=== PATIENT | male | born 1950 | race Caucasian/White ===

== ENCOUNTER → 2021-06-29 10:30 | Outpatient (CLI) | payer MEDICARE, SELFPAY ==
[2021-06-29 20:17] LABS: COVID19 - ORCAS (NP or Nasal) Negative (Negative)
== END ==
PROVIDERS: Visit Provider Family Medicine
DX: Z20.822 Contact with and (suspected) exposure to COVID-19 (principal)
CPT/HCPCS: C9803; U0003

== ENCOUNTER → 2021-12-07 12:20 | Outpatient (CLI) | payer MEDICARE, OTHER, SELFPAY ==
[2021-12-07 19:43] LABS: Alanine Aminotransferase 26 IU/L (<50); Albumin 4.6 g/dL (3.5-5.0); Albumin Globulin Ratio 1.9 (1.0-2.8); Alkaline Phosphatase 54 U/L (38-126); Aspartate Aminotransferase 24 IU/L (17-59); BUN Creatinine Ratio 14.2 (6-22); Bilirubin Total 0.8 mg/dL (0.2-1.3); Blood Urea Nitrogen 15 mg/dL (9-20); Calcium 9.4 mg/dL (8.4-10.2); Carbon Dioxide 26 mmol/L (22-32); Chloride 106 mmol/L (98-107); Cholesterol 166 mg/dL (140-199); Estimated Glomerular Filt Rate > 60.0 mL/min (>60); Globulin 2.4 g/dL (1.7-4.1); Glucose 95 mg/dL (80-110); HDL Cholesterol 47 mg/dL (40-60); HEMOLYSIS < 15 (0-50); LDL Cholesterol Calculated 87 mg/dL (<100); Potassium 4.1 mmol/L (3.4-5.1); Sodium 140 mmol/L (137-145); Triglycerides 160 mg/dL (35-150)
[2021-12-07 19:59] LABS: Add Manual Diff / Slide Review NO; Basophils Absolute Auto 0 /uL (0-100); Basophils Percent Auto 0.9 % (0-2); Eosinophils Absolute Auto 100 /uL (0-450); Eosinophils Percent Auto 3.2 % (2-4); Hematocrit 48.2 % (41-53); Hemoglobin 16.9 g/dL (13.5-17.5); Lymphocytes Absolute Auto 1300 /uL (1100-4500); Lymphocytes Percent Auto 30.6 % (25-40); Mean Corpuscular HGB Conc 35.1 % (30-36); Mean Corpuscular Hemoglobin 30.8 PG (26-34); Mean Corpuscular Volume 87.5 fL (80-100); Monocytes Absolute Auto 400 /uL (0-900); Monocytes Percent Auto 9.3 % (3-14); Neutrophils Absolute Auto 2300 /uL (1500-7000); Platelet Count 130 X10^3/uL (150-400); Red Blood Cell Count 5.51 X10^6/uL (4.5-5.9); Red Cell Distribution Width 13.8 % (11.6-14.8); White Blood Cell Count 4.1 X10^3/uL (4.5-11.0)
[2021-12-07 20:39] LABS: Prostate Specific Antigen 99.3 ng/mL (0.10-4.00)
== END ==
PROVIDERS: Referring Provider Physician Assistant; Visit Provider Physician Assistant
DX: Z13.1 Encounter for screening for diabetes mellitus (principal); I10 Essential (primary) hypertension; Z00.00 Encounter for general adult medical examination without abnormal findings; Z13.220 Encounter for screening for lipoid disorders; Z12.5 Encounter for screening for malignant neoplasm of prostate; M10.9 Gout, unspecified
CPT/HCPCS: 80053; 80061; 83036; 84153; 84550; 85025; G0103

== ENCOUNTER → 2022-01-09 11:30 | Outpatient (CLI) | payer MEDICARE, OTHER, SELFPAY ==
[2022-01-09 23:32] LABS: Prostate Specific Antigen Scrn 92.7 ng/mL (0.1-4.0)
== END ==
PROVIDERS: PCP Physician Assistant; Visit Provider Urology
DX: R97.20 Elevated prostate specific antigen [PSA] (principal); Z12.5 Encounter for screening for malignant neoplasm of prostate
CPT/HCPCS: G0103

== ENCOUNTER → 2022-01-12 15:24 | Outpatient (CLI) | payer MEDICARE, OTHER, SELFPAY ==
--- NOTE | 2022-01-12 15:26 | DI.MRI.S_ITS ---
PROCEDURE: MR PELIS WO/W CON INDICATIONS: PSA of 99 TECHNIQUE: Coronal HASTE, axial T1 FSE with fat saturation, 3-plane nonbreath-hold T2 FSE. After the administration of contrast, dynamic axial, delayed axial and coronal VIBE or 2-D FLASH with fat saturation through the pelvis. Optional diffusion weighted imaging and ADC may be performed. COMPARISON: None. FINDINGS: Image quality: Diffusion weighted and dynamic contrast enhanced images are diagnostic. Prostate: Gland size is roughly 7.2 by 6.3 x 7.4 cm; ellipsoid gland volume is approximately 175 mL. Lesion size(s): Lesion 1: 5.4 cm Lesion 2: 1.2 cm Lesion 3: 2.2 cm. Lesion location(s) (sector): Lesion 1: Much of the entire right enlarged peripheral zone from the base to apex. Lesion 2: Right posterolateral peripheral zone mid gland apex. Lesion 3.: Periurethral transition zone at the apex Lesion description: Lesion 1: Curvilinear expansile region with indistinct T2 hypointensity suggesting erased charcoal appears to respect capsular boundary, but is immediately adjacent to the neurovascular bundle where infiltrative tissue is seen. Caudally, there is periurethral abnormal signal and enhancement Lesion 2: Oval area of mild decreased T2 signal within the artery abnormal peripheral zone is indistinguishable on T2 imaging Lesion 3.: Linear area with indistinct margins in the right periurethral region with mildly decreased T2 signal, possibly confluent with the larger more cranial region. T2 weighted imaging (T2WI) morphology score: Lesion 1: Five Lesion 2: Four Lesion 3: Three Diffusion weighted imaging (DWI) morphology score: Lesion 1: Five Lesion 2: Five Lesion 3.: Five Dynamic contrast enhancement (DCE): Lesion 1: Present Lesion 2: Absent Lesion 3.: Present Lesion PI-RADS score: Lesion 1: PI-RADS five Lesion 2: PI-RADS five Lesion 3.: PI-RADS four Genitourinary system: Urinary bladder wall is mildly diffusely thickened. There is a tiny right lateral bladder diverticulum.. Distal ureters are non distended. Bowel and peritoneum: No pathologic free pelvic fluid. Inferior colon and small bowel loops are normal in caliber. Nodes and vessels: Left anterior pelvic node measures 6 mm in short axis. Several nonenlarged external iliac chain nodes are present. Proximal left external iliac chain lymph node is enlarged. Soft tissues: No inguinal hernias. Bones: Marrow demonstrates normal overall signal, without lesions to suggest metastases. IMPRESSION: 1. There is a large area of suspicious signal involving the right peripheral zone with probable extracapsular extension towards the neurovascular bundle. 2. There is a more focal area within this abnormal area of even more increased restricted diffusion. 3. There is abnormal periurethral signal in the right transition zone at the apex. 4. While these areas are PI-RADS five and four respectively, moderate and highly suspicious for neoplasm, differential diagnosis includes, but less likely, prostatitis and periurethral fibrosis. Targeted biopsy is suggested if not previously performed. 5. Left anterior pelvic and proximal external iliac chain lymph nodes are mildly suspicious. Dictated by: Yaneth Patton M.D. on 01/12/2022 at 17:30 Approved by: Yaneth Patton M.D. on 01/12/2022 at 17:54
== END ==
PROVIDERS: PCP Physician Assistant; Referring Provider Urology; Visit Provider Urology
DX: N42.9 Disorder of prostate, unspecified (principal); R97.20 Elevated prostate specific antigen [PSA]; R59.0 Localized enlarged lymph nodes
CPT/HCPCS: 72197

== ENCOUNTER → 2022-02-27 14:47 | Outpatient (CLI) | payer MEDICARE, OTHER, SELFPAY ==
[2022-02-27 16:13] LABS: BUN Creatinine Ratio 18.2 (6-22); Blood Urea Nitrogen 20 mg/dL (9-20); Calcium 8.7 mg/dL (8.4-10.2); Carbon Dioxide 24 mmol/L (22-32); Chloride 108 mmol/L (98-107); Estimated Glomerular Filt Rate > 60 mL/min (>60); Glucose 92 mg/dL (80-110); HEMOLYSIS 28 (0-50); Potassium 3.9 mmol/L (3.4-5.1); Sodium 142 mmol/L (137-145)
== END ==
PROVIDERS: PCP Physician Assistant; Referring Provider Urology; Visit Provider Urology
DX: C61 Malignant neoplasm of prostate (principal); R97.20 Elevated prostate specific antigen [PSA]; N42.9 Disorder of prostate, unspecified
CPT/HCPCS: 36415; 80048; 99215

== ENCOUNTER → 2022-03-14 10:36 | Outpatient (CLI) | payer MEDICARE, OTHER, SELFPAY ==
--- NOTE | 2022-03-14 10:37 | DI.NM.S_ITS ---
PROCEDURE: NM BONE SCAN WHOLE BODY RADIOPHARMACEUTICAL: 20 mCi Tc-99m MDP IV. INDICATIONS: New diagnosis prostate cancer rule out mets TECHNIQUE: Delayed whole-body scintigrams were obtained approximately 3-4 hours after intravenous injection of radiotracer. Anterior and posterior views were acquired from vertex to feet. Additional left and right oblique views of the pelvis were obtained. COMPARISON: [facility], CT, CT ABDOMEN PELVIS W CON, 03/14/2022, 11:35. [facility], MR, MR PELVIS WO/W CON, 01/12/2022, 15:39. FINDINGS: No lesions are identified in skull, sternum, clavicles, scapulae, ribs, bony pelvis, and visualized shafts of the long bones. There is low level increased uptake in cervical, thoracic and lumbar spine with distribution indistinguishable from degenerative disc and facet disease; early metastasis to spine could be obscured by degenerative changes. There are foci of increased periarticular activity compatible with degenerative/arthritic changes. IMPRESSION: No definitive scintigraphic findings to suggest osseous metastasis. Dictated by: Rishabh Iglesias M.D. on 03/14/2022 at 16:22 Approved by: Rishabh Iglesias M.D. on 03/14/2022 at 16:39
--- NOTE | 2022-03-14 11:31 | DI.CT.S_ITS ---
PROCEDURE: CT ABDOMEN PELVIS W CON INDICATIONS: Mets/ Staging New CA dx TECHNIQUE: After the administration of oral and intravenous contrast, axial sections were acquired from the lung bases to the pubic symphysis. Coronal and sagittal reformats were performed. For radiation dose reduction, the following was used: automated exposure control, adjustment of mA and/or kV according to patient size. COMPARISON:[facility], MR, MR PELVIS WO/W CON, 01/12/2022, 15:39. FINDINGS: Image quality: Excellent. Lung bases: Unremarkable. Heart: No significant findings. ABDOMEN: Liver: Unremarkable. Gallbladder: Unremarkable. Biliary ducts: Unremarkable. Pancreas: Unremarkable. Spleen: Unremarkable. Adrenal Glands: Unremarkable. Kidneys and Ureters: Unremarkable. Stomach and Bowel: Small hiatal hernia. Distal esophageal wall thickening, mild, may potentially represent reflux esophagitis. Peritoneum: No abnormal intraperitoneal fluid. No free air. Ventral Wall: No hernia. Abdominal Nodes: No retroperitoneal or mesenteric adenopathy by size criteria. A left iliac lymph node on image 70/2 measures 1.8 x 1.0 cm. A left common iliac lymph node near the bifurcation of the aorta measures 1.2 x 1.1 cm. Vessels: Aorta and inferior vena cava are normal in size. PELVIS: Pelvic Organs: Prostate is quite enlarged Bladder: Mild diffuse bladder wall thickening. Pelvic Nodes: A left iliac lymph node measures 1.8 x 1.0 cm. There is a enhancing lymph node in the lower perivesicular fat behind the left rectus muscle measuring 1.2 x 0.9 cm. Miscellaneous: No inguinal hernias are seen. Bones: No lytic or blastic bony lesions. IMPRESSION: 1. Marked enlargement of the prostate. 2. Somewhat prominent left iliac lymph nodes, as well as a lymph node near the bladder the on the left rectus muscle. 3. No other findings suspicious for metastatic disease. Dictated by: Flaco Rodney M.D. on 03/14/2022 at 12:53 Approved by: Flaco Rodney M.D. on 03/14/2022 at 13:07
== END ==
PROVIDERS: PCP Physician Assistant; Referring Provider Urology; Visit Provider Urology
DX: C61 Malignant neoplasm of prostate (principal); R97.20 Elevated prostate specific antigen [PSA]; N42.9 Disorder of prostate, unspecified; K44.9 Diaphragmatic hernia without obstruction or gangrene; R59.0 Localized enlarged lymph nodes
CPT/HCPCS: 74177; 78306; A9503

== ENCOUNTER → 2022-12-05 12:49 | Outpatient (CLI) | payer MEDICARE, OTHER, SELFPAY ==
--- NOTE | 2022-12-05 12:50 | DI.MRI.S_ITS ---
PROCEDURE: MR KNEE LT WO CON INDICATIONS: left knee injury,instability,pain x 4 mos TECHNIQUE: Noncontrast sagittal PD fast spin echo and T2 fast spin echo with fat saturation, sagittal 3-D FLASH with fat saturation; coronal T1 spin echo and PD fast spin echo with fat saturation, and axial PD fast spin echo with fat saturation through the knee. COMPARISON: [facility] ([facility]), CR, XR KNEE LT 3V, 11/28/2022, 12:00. FINDINGS: Image quality: Excellent. Anterior Cruciate Ligament: Intact. Posterior Cruciate Ligament: Intact. Medial Collateral Ligament: Mild thickening of the proximal medial collateral ligament is most likely secondary to a remote prior low-grade sprain. Lateral Collateral Ligament: Intact. Medial Meniscus: Intact. Lateral Meniscus: Intact. Medial and Lateral Tendons: The semimembranosus tendon insertions and meniscocapsular junction appear intact. Visualized portions of the pes anserinus tendons appear normal. No abnormal bursal fluid. The long and short heads of the biceps femoris tendon appear intact. The popliteus tendon appears intact. No signs of posterolateral corner injury. Iliotibial band appears normal. Anterior Structures: Mild patellar tendinosis. The distal quadriceps tendon is intact. No patellar subluxation. No femoral trochlear dysplasia or ventral trochlear prominence. No edema in the infrapatellar fat pad. Bones: No acute trabecular bone injury or fracture. Medial Femorotibial Cartilage: Intact. Lateral Femorotibial Cartilage: Intact. Patellofemoral Cartilage: Intact. Soft Tissues: A small joint effusion is present. Trace medial popliteal cyst. Mild [id number] signal is seen in the distal portion of the semimembranosus muscle that is suspicious for a low-grade muscle strain. There is also subtle intramuscular edema within the calf musculature that may also indicate a low-grade strain. IMPRESSION: 1. Mild edema within the musculature surrounding, most prominent in the semimembranosus muscle, is nonspecific but may be secondary to low-grade muscle strains. 2. Chronic low-grade sprain of the proximal medial collateral ligament. 3. Cruciate ligaments are intact. No meniscal tear. There is no acute trabecular bone injury. 4. Small joint effusion. Approved by: Sotero Leal M.D. on 12/05/2022 at 16:21
== END ==
PROVIDERS: Family Provider Physician Assistant; PCP Physician Assistant; Referring Provider Physician Assistant; Visit Provider Physician Assistant
DX: M25.562 Pain in left knee (principal); M25.462 Effusion, left knee; G89.29 Other chronic pain; S83.412A Sprain of medial collateral ligament of left knee, initial encounter; M21.372 Foot drop, left foot
CPT/HCPCS: 73721

== ENCOUNTER → 2022-12-20 10:41 | Outpatient (CLI) | payer MEDICARE, OTHER, SELFPAY ==
[2022-12-20 19:22] LABS: Hemoglobin A1C% w Est Avg Glu 4.4 % (4.0-6.0)
[2022-12-20 19:27] LABS: Add Manual Diff / Slide Review NO; Basophils Absolute Auto 0 /uL (0-100); Basophils Percent Auto 1.1 % (0-2); Eosinophils Absolute Auto 200 /uL (0-450); Eosinophils Percent Auto 6.1 % (2-4); Hematocrit 42.4 % (41-53); Lymphocytes Absolute Auto 500 /uL (1100-4500); Lymphocytes Percent Auto 17.2 % (25-40); Mean Corpuscular HGB Conc 35.3 % (30-36); Mean Corpuscular Hemoglobin 31.7 PG (26-34); Mean Corpuscular Volume 89.8 fL (80-100); Monocytes Absolute Auto 200 /uL (0-900); Neutrophils Absolute Auto 2000 /uL (1500-7000); Neutrophils Percent Auto 67.6 % (50-75); Platelet Count 125 X10^3/uL (150-400); Red Blood Cell Count 4.72 X10^6/uL (4.5-5.9); Red Cell Distribution Width 13.7 % (11.6-14.8); White Blood Cell Count 2.9 X10^3/uL (4.5-11.0)
[2022-12-20 19:43] LABS: Alanine Aminotransferase 20 IU/L (<50); Albumin Globulin Ratio 1.8 (1.0-2.8); Alkaline Phosphatase 64 U/L (38-126); Aspartate Aminotransferase 21 IU/L (17-59); BUN Creatinine Ratio 12.9 (6-22); Blood Urea Nitrogen 12 mg/dL (9-20); Calcium 9.1 mg/dL (8.4-10.2); Carbon Dioxide 23 mmol/L (22-32); Chloride 103 mmol/L (98-107); Estimated Glomerular Filt Rate > 60 mL/min (>60); Globulin 2.2 g/dL (1.7-4.1); Glucose 130 mg/dL (80-110); HEMOLYSIS < 15 (0-50); Potassium 3.1 mmol/L (3.4-5.1); Sodium 139 mmol/L (137-145); Total Protein 6.2 g/dL (6.3-8.2)
[2022-12-20 19:56] LABS: Prostate Specific Antigen < 0.064 ng/mL (0.10-4.00)
== END ==
PROVIDERS: Family Provider Physician Assistant; PCP Physician Assistant; Visit Provider Urology
DX: M25.562 Pain in left knee (principal); Z13.1 Encounter for screening for diabetes mellitus; C61 Malignant neoplasm of prostate; I10 Essential (primary) hypertension; R21 Rash and other nonspecific skin eruption; G89.29 Other chronic pain
CPT/HCPCS: 80053; 83036; 84153; 85025

== ENCOUNTER 2023-01-03 11:15 | Outpatient (CLI) | payer MEDICARE, OTHER, SELFPAY | END 2023-01-11 14:34 | disposition home or self-care (01) | PROVIDERS: Family Provider Physician Assistant; PCP Physician Assistant; Referring Provider Physician Assistant; Visit Provider Physician Assistant | DX: C61 Malignant neoplasm of prostate (principal); M21.372 Foot drop, left foot; R20.2 Paresthesia of skin; R97.20 Elevated prostate specific antigen [PSA]; R39.9 Unspecified symptoms and signs involving the genitourinary system; Z92.3 Personal history of irradiation; Z79.818 Long term (current) use of other agents affecting estrogen receptors and estrogen levels | CPT/HCPCS: 95886; 95910; 96402; 99213; J9217 ==

== ENCOUNTER → 2023-01-15 11:36 | Outpatient (CLI) | payer MEDICARE, OTHER, SELFPAY ==
[2023-01-15 19:07] LABS: Add Manual Diff / Slide Review NO; Basophils Absolute Auto 0 /uL (0-100); Basophils Percent Auto 0.4 % (0-2); Eosinophils Absolute Auto 300 /uL (0-450); Eosinophils Percent Auto 10.4 % (2-4); Hematocrit 40.6 % (41-53); Hemoglobin 14.3 g/dL (13.5-17.5); Lymphocytes Absolute Auto 600 /uL (1100-4500); Lymphocytes Percent Auto 17.6 % (25-40); Mean Corpuscular HGB Conc 35.3 % (30-36); Mean Corpuscular Hemoglobin 31.4 PG (26-34); Mean Corpuscular Volume 88.9 fL (80-100); Monocytes Absolute Auto 300 /uL (0-900); Monocytes Percent Auto 8.2 % (3-14); Neutrophils Absolute Auto 2000 /uL (1500-7000); Neutrophils Percent Auto 63.4 % (50-75); Platelet Count 124 X10^3/uL (150-400); Red Blood Cell Count 4.56 X10^6/uL (4.5-5.9); Red Cell Distribution Width 13.3 % (11.6-14.8); White Blood Cell Count 3.1 X10^3/uL (4.5-11.0)
[2023-01-15 19:25] LABS: BUN Creatinine Ratio 15.9 (6-22); Blood Urea Nitrogen 14 mg/dL (9-20); Calcium 8.7 mg/dL (8.4-10.2); Carbon Dioxide 30 mmol/L (22-32); Chloride 104 mmol/L (98-107); Estimated Glomerular Filt Rate > 60 mL/min (>60); Glucose 130 mg/dL (80-110); HEMOLYSIS < 15 (0-50); Potassium 3.1 mmol/L (3.4-5.1); Sodium 142 mmol/L (137-145)
== END ==
PROVIDERS: Family Provider Physician Assistant; PCP Physician Assistant; Visit Provider Physician Assistant
DX: I10 Essential (primary) hypertension (principal); D72.810 Lymphocytopenia; E87.6 Hypokalemia
CPT/HCPCS: 80048; 85025

== ENCOUNTER → 2023-03-28 09:06 | Outpatient (CLI) | payer MEDICARE, OTHER, SELFPAY ==
[2023-03-28 19:56] LABS: Prostate Specific Antigen < 0.064 ng/mL (0.10-4.00)
== END ==
PROVIDERS: Family Provider Physician Assistant; PCP Physician Assistant; Visit Provider Urology
DX: R97.20 Elevated prostate specific antigen [PSA] (principal)
CPT/HCPCS: 84153

== ENCOUNTER → 2023-06-19 10:52 | Outpatient (CLI) | payer MEDICARE, OTHER, SELFPAY ==
[2023-06-19 20:29] LABS: Prostate Specific Antigen < 0.064 ng/mL (0.10-4.00)
== END ==
PROVIDERS: Family Provider Physician Assistant; PCP Physician Assistant; Visit Provider Urology
DX: R97.20 Elevated prostate specific antigen [PSA] (principal)
CPT/HCPCS: 84153

== ENCOUNTER → 2023-08-14 15:18 | Outpatient (CLI) | payer MEDICARE, OTHER, SELFPAY ==
--- NOTE | 2023-08-14 15:20 | DI.RAD.S_ITS ---
Bone Density Report Name: ANTHONY CRUZ Age: 73 Sex: Male Ethnicity: White Date of : 1950 Indication: screening for osteoporosis; Referring Provider: DOMENICO SIMMONS Study: Bone densitometry was performed. Exam Date: August 14, 2023 Accession number: [id number] Bone Density: Region BMD T-score Z-score Classification AP Spine(L1, L2, L3) 0.992 -0.2 0.2 Normal Femoral Neck (Left) 0.682 -1.5 -0.6 Osteopenia Total Hip (Left) 0.974 0.3 0.3 Normal Femoral Neck (Right) 0.720 -1.2 -0.3 Osteopenia Total Hip (Right) 0.979 0.3 0.3 Normal Total Hip Mean 0.977 0.3 0.3 Normal World Health Organization criteria for BMD impression classify patients as: Normal (T-score at or above -1.0), Osteopenia (T-score between -1.0 and -2.5), or Osteoporosis (T-score at or below -2.5). 10-year Fracture Risk(1): Major Osteoporotic Fracture 7.0% Hip Fracture 1.8% Reported Risk Factors: [place] (), Neck BMD=0.682, BMI=33.3 (1) FRAX(R) Version 3.08. Fracture probability calculated for an untreated patient. Fracture probability may be lower if the patient has received treatment. Impression: The patient has low bone mass, based on the Left Femoral Neck T-score. The patient has an estimated ten-year risk of hip fracture of 1.8% and an estimated ten-year risk of major fracture of 7%, based on the WHO FRAX algorithm. Discussion: BONE DENSITY IS LOW AT ONE OR MORE SKELETAL SITES. This patient's lowest T-score is low at one or more skeletal sites. It meets the World Health Organization's (WHO) criteria for low bone mass (T-score between -1.0 and -2.5). The patient's 10-year risk of fracture as calculated by FRAX is less than the threshold where pharmacological therapy is recommended by the National Osteoporosis Foundation (NOF). However, all treatment decisions require clinical judgment and consideration of individual patient factors, including patient preferences, comorbidities, previous drug use, risk factors not captured in the FRAX model (e.g., frailty, falls, vitamin D deficiency, increased bone turnover, interval significant decline in bone density) and possible under or overestimation of fracture risk by FRAX. The patient should follow a healthful lifestyle (good nutrition with adequate calcium and vitamin D, and appropriate weight-bearing exercise). Follow-Up: Consider repeating this study in 2 to 3 years to reassess this patient's status, or sooner if there is some new clinical indication. Reported by: ANITA WELDON M.D on 08/14/2023 3:53:00 PM.
== END ==
PROVIDERS: Family Provider Physician Assistant; PCP Physician Assistant; Referring Provider Urology; Visit Provider Urology
DX: C61 Malignant neoplasm of prostate (principal); M85.852 Other specified disorders of bone density and structure, left thigh; M85.851 Other specified disorders of bone density and structure, right thigh; Z79.818 Long term (current) use of other agents affecting estrogen receptors and estrogen levels
CPT/HCPCS: 77080

== ENCOUNTER → 2023-09-17 13:26 | Outpatient (CLI) | payer MEDICARE, OTHER, SELFPAY ==
[2023-09-17 21:02] LABS: Prostate Specific Antigen < 0.064 ng/mL (0.10-4.00)
== END ==
PROVIDERS: Family Provider Physician Assistant; PCP Physician Assistant; Visit Provider Urology
DX: C61 Malignant neoplasm of prostate (principal)
CPT/HCPCS: 84153

== ENCOUNTER → 2023-12-18 11:02 | Outpatient (CLI) | payer MEDICARE, OTHER, SELFPAY ==
[2023-12-18 19:33] LABS: Vitamin D 25 Hydroxy (D3) 42.2 ng/mL (30.0-100.0)
[2023-12-18 19:41] LABS: Prostate Specific Antigen < 0.064 ng/mL (0.10-4.00)
== END ==
PROVIDERS: Family Provider Physician Assistant; PCP Urology; Visit Provider Urology
DX: C61 Malignant neoplasm of prostate (principal); Z79.818 Long term (current) use of other agents affecting estrogen receptors and estrogen levels; M85.80 Other specified disorders of bone density and structure, unspecified site
CPT/HCPCS: 82306; 84153

== ENCOUNTER → 2024-03-18 13:05 | Outpatient (CLI) | payer MEDICARE, OTHER, SELFPAY ==
[2024-03-18 21:44] LABS: Prostate Specific Antigen < 0.064 ng/mL (0.10-4.00)
== END ==
PROVIDERS: Family Provider Physician Assistant; Visit Provider Urology
DX: C61 Malignant neoplasm of prostate (principal)
CPT/HCPCS: 84153

== ENCOUNTER → 2024-05-26 12:03 | Outpatient (CLI) | payer MEDICARE, OTHER, SELFPAY ==
[2024-05-26 21:15] LABS: Alanine Aminotransferase 18 IU/L (<50); Albumin 4.2 g/dL (3.5-5.0); Albumin Globulin Ratio 1.8 (1.0-2.8); Alkaline Phosphatase 66 U/L (38-126); Aspartate Aminotransferase 22 IU/L (17-59); BUN Creatinine Ratio 16.2 (6-22); Bilirubin Total 0.9 mg/dL (0.2-1.3); Blood Urea Nitrogen 16 mg/dL (9-20); Calcium 9.4 mg/dL (8.4-10.2); Carbon Dioxide 26 mmol/L (22-32); Chloride 107 mmol/L (98-107); Estimated Glomerular Filt Rate > 60 mL/min (>60); Globulin 2.4 g/dL (1.7-4.1); Glucose 101 mg/dL (80-110); HEMOLYSIS < 15 (0-50); Sodium 139 mmol/L (137-145); Total Protein 6.6 g/dL (6.3-8.2)
== END ==
PROVIDERS: Family Provider Physician Assistant; PCP Family Medicine; Referring Provider Urology; Visit Provider Urology
DX: C61 Malignant neoplasm of prostate (principal); Z79.818 Long term (current) use of other agents affecting estrogen receptors and estrogen levels
CPT/HCPCS: 80053

== ENCOUNTER → 2024-06-10 12:01 | Outpatient (CLI) | payer MEDICARE, OTHER, SELFPAY ==
[2024-06-10 22:37] LABS: BUN Creatinine Ratio 17.5 (6-22); Blood Urea Nitrogen 18 mg/dL (9-20); Calcium 9.2 mg/dL (8.4-10.2); Carbon Dioxide 28 mmol/L (22-32); Chloride 103 mmol/L (98-107); Estimated Glomerular Filt Rate > 60 mL/min (>60); Glucose 135 mg/dL (80-110); HEMOLYSIS < 15 (0-50); Potassium 3.9 mmol/L (3.4-5.1); Sodium 137 mmol/L (137-145)
== END ==
PROVIDERS: Family Provider Physician Assistant; PCP Family Medicine; Visit Provider Urology
DX: I10 Essential (primary) hypertension (principal)
CPT/HCPCS: 80048

== ENCOUNTER → 2024-06-24 11:56 | Outpatient (CLI) | payer MEDICARE, OTHER, SELFPAY ==
[2024-06-24 20:11] LABS: BUN Creatinine Ratio 23.7 (6-22); Blood Urea Nitrogen 22 mg/dL (9-20); Calcium 9.3 mg/dL (8.4-10.2); Carbon Dioxide 24 mmol/L (22-32); Chloride 104 mmol/L (98-107); Estimated Glomerular Filt Rate > 60 mL/min (>60); Glucose 111 mg/dL (80-110); HEMOLYSIS 44 (0-50); Potassium 4.1 mmol/L (3.4-5.1); Sodium 135 mmol/L (137-145)
== END ==
PROVIDERS: Family Provider Physician Assistant; PCP Family Medicine; Referring Provider Urology; Visit Provider Urology
DX: I10 Essential (primary) hypertension (principal)
CPT/HCPCS: 80048

== ENCOUNTER → 2024-06-30 09:13 | Outpatient (CLI) | payer MEDICARE, OTHER, SELFPAY ==
[2024-06-30 19:16] LABS: Blood Urea Nitrogen 27 mg/dL (9-20); Calcium 9.6 mg/dL (8.4-10.2); Carbon Dioxide 26 mmol/L (22-32); Chloride 98 mmol/L (98-107); Estimated Glomerular Filt Rate > 60 mL/min (>60); Glucose 89 mg/dL (80-110); HEMOLYSIS < 15 (0-50); Potassium 4.4 mmol/L (3.4-5.1); Sodium 133 mmol/L (137-145)
== END ==
PROVIDERS: Family Provider Physician Assistant; PCP Family Medicine; Referring Provider Urology; Visit Provider Urology
DX: I10 Essential (primary) hypertension (principal)
CPT/HCPCS: 80048

== ENCOUNTER → 2024-07-09 12:05 | Outpatient (CLI) | payer MEDICARE, OTHER, SELFPAY ==
[2024-07-09 20:01] LABS: Prostate Specific Antigen < 0.064 ng/mL (0.10-4.00)
== END ==
PROVIDERS: Family Provider Physician Assistant; PCP Family Medicine; Visit Provider Urology
DX: R97.20 Elevated prostate specific antigen [PSA] (principal)
CPT/HCPCS: 84153

== ENCOUNTER → 2024-08-21 10:25 | Outpatient (CLI) | payer MEDICARE, OTHER, SELFPAY ==
[2024-08-21 20:25] LABS: Add Manual Diff / Slide Review NO; Basophils Absolute Auto 0 /uL (0-100); Basophils Percent Auto 0.8 % (0-2); Eosinophils Absolute Auto 200 /uL (0-450); Eosinophils Percent Auto 4.5 % (2-4); Hematocrit 40.2 % (41-53); Lymphocytes Absolute Auto 700 /uL (1100-4500); Lymphocytes Percent Auto 21.2 % (25-40); Mean Corpuscular HGB Conc 34.9 % (30-36); Mean Corpuscular Hemoglobin 31.2 PG (26-34); Mean Corpuscular Volume 89.4 fL (80-100); Monocytes Absolute Auto 400 /uL (0-900); Monocytes Percent Auto 13.1 % (3-14); Neutrophils Absolute Auto 2000 /uL (1500-7000); Neutrophils Percent Auto 60.4 % (50-75); Platelet Count 147 X10^3/uL (150-400); Red Cell Distribution Width 14.4 % (11.6-14.8); White Blood Cell Count 3.4 X10^3/uL (4.5-11.0)
[2024-08-21 20:33] LABS: BUN Creatinine Ratio 21.1 (6-22); Blood Urea Nitrogen 19 mg/dL (9-20); Calcium 9.5 mg/dL (8.4-10.2); Carbon Dioxide 24 mmol/L (22-32); Chloride 103 mmol/L (98-107); Cholesterol 161 mg/dL (140-199); Estimated Glomerular Filt Rate > 60 mL/min (>60); Glucose 114 mg/dL (80-110); HDL Cholesterol 47 mg/dL (40-60); HEMOLYSIS 27 (0-50); LDL Cholesterol Calculated 71 mg/dL (<100); Potassium 4.2 mmol/L (3.4-5.1); Sodium 133 mmol/L (137-145); Triglycerides 216 mg/dL (35-150)
== END ==
PROVIDERS: Family Provider Physician Assistant; PCP Family Medicine; Visit Provider Family Medicine
DX: I10 Essential (primary) hypertension (principal); R53.83 Other fatigue; D61.818 Other pancytopenia; E87.1 Hypo-osmolality and hyponatremia; Z13.6 Encounter for screening for cardiovascular disorders
CPT/HCPCS: 80048; 80061; 85025

== ENCOUNTER → 2024-11-17 13:05 | Outpatient (CLI) | payer MEDICARE, OTHER, SELFPAY ==
[2024-11-17 20:16] LABS: BUN Creatinine Ratio 20.7 (6-22); Blood Urea Nitrogen 23 mg/dL (9-20); Calcium 9.4 mg/dL (8.4-10.2); Carbon Dioxide 22 mmol/L (22-32); Chloride 106 mmol/L (98-107); Estimated Glomerular Filt Rate > 60 mL/min (>60); Glucose 101 mg/dL (80-110); HEMOLYSIS 24 (0-50); Potassium 4.5 mmol/L (3.4-5.1); Sodium 133 mmol/L (137-145)
== END ==
PROVIDERS: Family Provider Physician Assistant; PCP Family Medicine; Visit Provider Family Medicine
DX: C61 Malignant neoplasm of prostate (principal); E87.1 Hypo-osmolality and hyponatremia; I10 Essential (primary) hypertension
CPT/HCPCS: 80048; 84153

== ENCOUNTER → 2025-03-16 09:56 | Outpatient (CLI) | payer MEDICARE, OTHER, SELFPAY ==
[2025-03-16 19:49] LABS: Add Manual Diff / Slide Review NO; Basophils Absolute Auto 0 /uL (0-100); Basophils Percent Auto 1.1 % (0-2); Eosinophils Absolute Auto 200 /uL (0-450); Eosinophils Percent Auto 4.6 % (2-4); Hematocrit 44.9 % (41-53); Hemoglobin 15.5 g/dL (13.5-17.5); Lymphocytes Absolute Auto 800 /uL (1100-4500); Lymphocytes Percent Auto 20.7 % (25-40); Mean Corpuscular HGB Conc 34.5 % (30-36); Monocytes Absolute Auto 400 /uL (0-900); Monocytes Percent Auto 9.9 % (3-14); Neutrophils Absolute Auto 2500 /uL (1500-7000); Neutrophils Percent Auto 63.7 % (50-75); Platelet Count 143 X10^3/uL (150-400); Red Blood Cell Count 4.83 X10^6/uL (4.5-5.9); Red Cell Distribution Width 14.1 % (11.6-14.8)
[2025-03-16 19:54] LABS: Alanine Aminotransferase 31 IU/L (<50); Albumin 4.4 g/dL (3.5-5.0); Alkaline Phosphatase 64 U/L (38-126); Aspartate Aminotransferase 29 IU/L (17-59); BUN Creatinine Ratio 14.3 (6-22); Bilirubin Total 0.5 mg/dL (0.2-1.3); Blood Urea Nitrogen 15 mg/dL (9-20); Calcium 9.3 mg/dL (8.4-10.2); Carbon Dioxide 25 mmol/L (22-32); Chloride 105 mmol/L (98-107); Cholesterol 173 mg/dL (140-199); Estimated Glomerular Filt Rate > 60 mL/min (>60); Globulin 2.2 g/dL (1.7-4.1); Glucose 105 mg/dL (70-99); HDL Cholesterol 43 mg/dL (40-60); HEMOLYSIS 17 (0-50); LDL Cholesterol Calculated 82 mg/dL (<100); Potassium 4.5 mmol/L (3.4-5.1); Sodium 137 mmol/L (137-145); Total Protein 6.6 g/dL (6.3-8.2); Triglycerides 238 mg/dL (35-150)
[2025-03-16 20:21] LABS: Thyroid Stimulating Hormone 1.98 uIU/mL (0.47-4.68)
[2025-03-16 20:28] LABS: Prostate Specific Antigen < 0.064 ng/mL (0.10-4.00)
== END ==
PROVIDERS: Urology; Family Provider Physician Assistant; PCP Family Medicine; Visit Provider Family Medicine
DX: E87.1 Hypo-osmolality and hyponatremia (principal); C61 Malignant neoplasm of prostate; I10 Essential (primary) hypertension; D61.818 Other pancytopenia; K59.00 Constipation, unspecified; R39.9 Unspecified symptoms and signs involving the genitourinary system
CPT/HCPCS: 80053; 80061; 84153; 84443; 85025

== ENCOUNTER → 2025-07-27 13:55 | Outpatient (CLI) | payer MEDICARE, OTHER, SELFPAY ==
[2025-07-27 19:31] LABS: Blood Urea Nitrogen 19 mg/dL (9-20); Calcium 9.3 mg/dL (8.4-10.2); Carbon Dioxide 21 mmol/L (22-32); Chloride 104 mmol/L (98-107); Estimated Glomerular Filt Rate > 60 mL/min (>60); Glucose 101 mg/dL (70-99); HEMOLYSIS 21 (0-50); Potassium 4.6 mmol/L (3.4-5.1); Sodium 134 mmol/L (137-145)
[2025-07-27 19:51] LABS: Hemoglobin A1C% w Est Avg Glu 5.2 % (4.0-6.0)
[2025-07-27 20:25] LABS: Prostate Specific Antigen 0.098 ng/mL (0.10-4.00)
== END ==
PROVIDERS: Urology; Family Provider Physician Assistant; PCP Family Medicine; Visit Provider Family Medicine
DX: R73.9 Hyperglycemia, unspecified (principal); C61 Malignant neoplasm of prostate; E87.1 Hypo-osmolality and hyponatremia
CPT/HCPCS: 80048; 83036; 84153

== ENCOUNTER 2025-09-21 12:17 | Day surgery (SDC) | payer MEDICARE, OTHER, SELFPAY ==
--- NOTE | 2025-09-21 | PATH_ITS ---
[facility] Accession Number: [id number] No. of containers..04 Tissue . 01 Material submitted: . PART A: body - POLYP AT 85CM PART B: body - POLYP AT 55CM PART C: body - POLYP AT 30CM PART D: body - POLYP AT 20CM . 01 Diagnosis: A. COLON POLYP AT 85 CM: Tubular adenoma. . B. COLON POLYP AT 55 CM: Tubular adenoma. . C. COLON POLYP AT 30 CM: Hyperplastic polyp. . D. COLON POLYP AT 20 CM: Hyperplastic polyp. MRV 10/01/2025 1121 Local . 01 Electronically signed: . Brit Castro MD, Pathologist NPI- [id number] . 01 Gross description: . A. Received in formalin with two patient identifiers, and polyp at 85 is one, 0.3 cm, oakley tissue fragment, entirely submitted in A1. B. Received in formalin with two patient identifiers, and polyp at 55 cm is one, 0.3 cm, oakley tissue fragment, entirely submitted in B1. C. Received in formalin with two patient identifiers, and polyp at 30 cm is one, 0.5 cm, oakley tissue fragment, entirely submitted in C1. D. Received in formalin with two patient identifiers, and polyp at 20 cm is one, 0.2 cm, oakley tissue fragment, entirely submitted in D1. ([id number]) /MRV 09/25/2025 1325 Local . 01 Pathologist provided ICD-10: D12.6 . 01 CPT . 284194, 150614, 682959, 508702 Specimen Comment: A courtesy copy of this report has been sent to [facility] Performed at: [address] [place] [id number] MD Amor Gonzáles MD Phone: [phone]
--- NOTE | 2025-09-21 06:22 | PM.HP.IH.1 ---
History of Present Illness History of Present Illness Date Patient Seen: 09/21/25 Chief complaint: Dx Colonoscopy w/poss bx Narrative: Patient presents for colonoscopy, possible internal hemorrhoid banding today. [facility] Medical History Osteopenia Nocturia Left knee pain Lower urinary tract symptoms History of radiation therapy Prostate cancer Family History Father Hypertension Gout Social History marital status: number of children: 0 alcohol intake: current substance use type: marijuana additional social history: no alcohol for 5-6 wks due to depression symptoms tob: none FHX: neg heart attack or stroke no CP no SOB not using a lot of salt buy home BP arm -- bring in with the results. all: PCN -- rash HTN meds: doxazosin 4 - atenolol 50 - lisinopril 40 gout: allopurinol 300mg/d cancer drugs: abiraterone 250 QID (for 1 more month) - prednisone 5 (how long will this continue?)- elligard injection is every 3 months (maybe ends in 3 months) osteopenia: c-d-mag JUN and SEPT: 2021 -- radiation of prostate 04/2024 Meds Home Medications and Allergies Home Medications ?Medication ?Instructions ?Recorded ?Confirmed ?Type allopurinol 300 mg tablet 300 mg PO DAILY gout prevention 08/16/25 08/18/25 Rx #90 tabs amiloride 5 mg tablet 5 mg PO DAILY for blood pressure . 08/16/25 08/18/25 Rx take every day even if normal #90 tabs lisinopril 40 mg tablet 40 mg PO DAILY blood pressure. 08/16/25 08/18/25 Rx take every day even if normal. #90 tabs atenolol 50 mg tablet 50 mg PO DAILY blood pressure. 08/17/25 08/18/25 Rx take every day even if normal. #90 tabs peg 3350-electrolytes 236 240 ml PO Q10M #4,000 mL 08/20/25 Rx gram-22.74 gram-6.74 gram-5.86 gram solution (Golytely) Allergies Allergy/AdvReac Type Severity Reaction Status Date / Time penicillin G Allergy Unknown Verified 08/18/25 13:38 Exam Narrative Exam Narrative: Const General: healthy appearing, comfortable and no acute distress Orientation: alert and oriented x3 HENMT Ears: hearing grossly normal bilaterally Eyes Visual Rm: normal visual rm by confrontation Conjunctivae: conjunctivae normal Sclera: sclerae normal EOM: EOM intact bilaterally Resp Effort & Inspection: normal respiratory effort and able to speak in complete sentences Cardio Rate: regular rate GI Palpation: soft (NT) Extrem General: no pedal edema and no calf tenderness Assessment & Plan Assessment and plan (1) Hemorrhoids: Qualifiers: Hemorrhoid type: fourth degree Qualified Code(s): K64.3 - Fourth degree hemorrhoids Status: Acute (2) Encounter for screening colonoscopy: Status: Acute Plan Plan screening colonoscopy with possible internal hemorrhoid banding. I prescribed our compounding formula for fissures to see if this improves his symptoms. The risks, benefits and options regarding the procedure were explained to the patient in detail. Risk discussion included but not limited to: bleeding, perforation, unable to reach cecum, missed lesion, pelvic sepsis, urinary retention, recurrent hemorrhoids. The patient was encouraged to ask questions and they were answered to their satisfaction. The patient understands and is agreeable to proceed. Time-Based Coding :: [TOTAL MINUTES] spent with patient and on the chart (including review of chart, obtaining history, exam, reviewing outside data, placing orders, documenting exam and treatment plan, and counseling patient) on [DATE]. PROFEE Development Planner Document charge(s): Yes Charge Codes Inpatient/observation care including admit and discharge same day: [id number]
[2025-09-21 12:41] VITALS: BP 139/82; PULSE 76; RESP 20; TEMP 36.1; O2SAT 96
--- NOTE | 2025-09-21 13:42 | P.OP.COLON_ITS ---
Operative Date/Time/Diagnoses Date of procedure: 09/21/25 Time of procedure: 14:19 Pre-op diagnosis: Hemorrhoids, screening colonoscopy Post-op diagnosis: other (Colon polyps, internal hemorrhoids) Procedure & Clinicians Study performed: Colonoscopy with polypectomy x 4 and internal hemorrhoid banding x 2 Same procedure(s) as scheduled: Yes Indications: 75yo M, c/o hemorrhoids, due for screening colonoscopy Surgeon: Jarrod Hernandez Anesthesia Type: MAC +/- Procedure Notes SCOAP/Timeout: Performed Procedure in detail: Colonoscopy Patient placed in left lateral recumbent position. Time out was performed. Procedural sedation was administered by anesthesia. Examination began with a thorough inspection of the perianal area. There was no evidence of fistula or cutaneous malignancy. The colonoscope was then placed into the rectum and the lumen was insufflated with carbon dioxide. The scope was carefully advanced forward. Ultimately the cecum was intubated and confirmed by identification of the ileocecal valve, the appendiceal orifice and the confluence of the taenia. The scope was then slowly withdrawn examining the colon thoroughly in all directions. In the rectum, retroflexion of the scope was performed for inspection of the distal rectum and anal canal. ?Significant colonoscopy findings: ?1. Quality of the preparation-good, [place] 2-3, improved with irrigation/suction ?2. Four polyps removed, all sessile, 4-5mm, benign appearing, removed with cold snare, retrieved for pathology; one at 20, 30, 55 and 85cm 3. Large internal hemorrhoid columns, two banded, one at 3 and 7 o'clock positions 4. External hemorrhoids/skin tags noted, +fissure noted (patient already treate d with compounding formula from office visit), no thrombosed hemorrhoids Scope withdrawal time: 18 minutes Findings: internal hemorrhoids and polyp(s) Specimen(s): other (polyps) Estimated Blood Loss: 5 Complications: none Impression: Multiple polyps, large internal hemorrhoids Post-procedure Recommendations: Colonoscopy in 5 years Plan for aftercare: PACU then home Follow up: as needed Disposition: PACU
[2025-09-21 14:19] VITALS: BP 123/65; PULSE 72; RESP 16; TEMP 36.2; O2SAT 94
[2025-09-21 14:24] VITALS: BP 123/65; PULSE 71; RESP 16; O2SAT 94
[2025-09-21] MEDS: LACTATED RINGERS 1,000 ML 42 ML IV (14:28)
[2025-09-21 14:29] VITALS: BP 123/65; PULSE 70; RESP 16; O2SAT 94
[2025-09-21 14:30] VITALS: BP 134/73; PULSE 70; RESP 16; TEMP 36.1; O2SAT 94
== END 2025-09-21 14:51 | disposition home or self-care (01) ==
PROVIDERS: PCP Family Medicine; Referring Provider Surgery; Visit Provider Surgery
PROC: 0DJD8ZZ Inspection of Lower Intestinal Tract, Via Natural or Artificial Opening Endoscopic (ICD-10-PCS; CPT 45378; principal; 2025-09-21 13:30)
DX: Z12.11 Encounter for screening for malignant neoplasm of colon (principal); D12.6 Benign neoplasm of colon, unspecified; K63.5 Polyp of colon; K64.3 Fourth degree hemorrhoids; K64.8 Other hemorrhoids; K64.4 Residual hemorrhoidal skin tags; I10 Essential (primary) hypertension; E66.9 Obesity, unspecified; Z85.46 Personal history of malignant neoplasm of prostate; Z68.36 Body mass index [BMI] 36.0-36.9, adult
CPT/HCPCS: 45385; 45398; J2704; J7120